=== PATIENT | female | born 1990 | race Caucasian/White ===

== ENCOUNTER 2020-12-25 06:19 | Inpatient (IN) ==
[2020-12-25] MEDS ORDERED: CeFAZolin Syr 2,000MG/20 ML 2,000 MG/20 ML SYRINGE IVPB ONE (06:46)
[2020-12-25] MEDS ORDERED: Ringers Solution, Lactated 1,000 ML IVC SCH (07:00)
[2020-12-25] MEDS ORDERED: Acetaminophen IV 1,000 MG/100 ML BAG IVPB ONE (07:00)
[2020-12-25] MEDS ORDERED: Famotidine 20 MG/2 ML VIAL IVP ONE (07:00)
[2020-12-25] MEDS ORDERED: Scopolamine Patch 1.5 MG PATCH.TD72 TD ONE (07:00)
[2020-12-25] MEDS ORDERED: Lidocaine HCL 4 ML Topical Solution (Laryng-O-Jet Kit Sterile Pak) TP ONE (07:05)
[2020-12-25] MEDS ORDERED: *HR* FentaNYL (PF) 100 MCG/2 ML VIAL ONE (07:09)
[2020-12-25] MEDS ORDERED: *HR* Rocuronium Bromide 50 MG/5 ML VIAL ONE ×2 (07:09→08:31)
[2020-12-25] MEDS ORDERED: Lidocaine -MPF 2% 2 ML VIAL ONE (07:09)
[2020-12-25] MEDS ORDERED: *HR* Midazolam HCl 2 MG/2 ML VIAL ONE (07:09)
[2020-12-25] MEDS ORDERED: *HR* Propofol 200 MG/20 ML VIAL IVP ONE ×2 (07:11→10:07)
[2020-12-25] MEDS ORDERED: Bupivacaine/EPI 1:200k 0.25% 50 ML VIAL ONE (07:18)
[2020-12-25] MEDS ORDERED: *HR* FentaNYL (PF) 100 MCG/2 ML VIAL IVP PRN (07:48)
[2020-12-25] MEDS ORDERED: Promethazine 6.25 MG in Water for inj. (sterile) 20 ML IVPB PRN (07:48)
[2020-12-25] MEDS ORDERED: *HR* HYDROmorphone PF 0.5 MG/0.5 ML SYRINGE IVP PRN (07:48)
[2020-12-25] MEDS ORDERED: Metoclopramide 10 MG/2 ML VIAL IVP PRN (07:48)
[2020-12-25] MEDS ORDERED: Ondansetron 4 MG/2 ML VIAL ONE (07:58)
[2020-12-25] MEDS ORDERED: *HR* HYDROMORPHONE 2 MG/ML VIAL ONE (08:36)
[2020-12-25] MEDS ORDERED: Sugammadex Sodium 200 MG/2 ML VIAL IV ONE (08:43)
[2020-12-25] MEDS ORDERED: *HR* Magnesium Sulfate 1 GM/2 ML VIAL ONE (08:47)
[2020-12-25] MEDS ORDERED: Ondansetron 4 MG/2 ML VIAL IVP PRN (11:33)
[2020-12-25] MEDS ORDERED: Naloxone 0.4 MG/ML INJ IVP PRN (11:33)
[2020-12-25] MEDS: *HR* OxyCODONE/APAP 5/325 TABLET PO PRN ×3 (13:37→23:27)
[2020-12-25] MEDS: Ringers Solution, Lactated 1,000 ML IVC SCH ×2 (14:37→19:49)
[2020-12-25] MEDS ORDERED: Ibuprofen 600 MG TABLET PO PRN (15:20)
[2020-12-26] MEDS: *HR* OxyCODONE/APAP 5/325 TABLET PO PRN (05:23)
[2020-12-26] MEDS ORDERED: Simethicone 80 MG TAB.CHEW PO PRN (07:14)
[2020-12-27 05:18] VITALS: O2SAT 96
[2020-12-27 08:21] VITALS: BP 124/77; PULSE 96; TEMP 97.8
== END 2020-12-27 08:31 | disposition home or self-care (01) | DRG 743 ==
LOC: SAMDAY 06:19 → 1NENUPED 11:31
PROVIDERS: ADMIT Obstetrics & Gynecology; ATTEND Obstetrics & Gynecology